=== PATIENT | female | born 1950 ===

== ENCOUNTER 2017-01-26 11:33 | Emergency (ER) | payer SELFPAY ==
[2017-01-26 11:45] VITALS: BP 187/74; PULSE 62; RESP 18; TEMP 97.8; O2SAT 99
--- NOTE | 2017-01-26 12:29 | C.PDOC ---
Time Seen by Provider: 01/26/17 12:07 Chief Complaint (Nursing): Lower Extremity Problem/Injury History Per: Patient Onset/Duration Of Symptoms: Days (months) Current Symptoms Are (Timing): Still Present Location Of Injury: Right: Foot, Left: Foot Quality Of Symptoms: Itching (?), Other (dry) Severity: Moderate Additional History Per: Prior Records Past Medical History Reviewed: Historical Data, Nursing Documentation, Vital Signs Vital Signs: Last Vital Signs Temp 97.8 F 01/26/17 11:40 Pulse 62 01/26/17 11:40 Resp 18 01/26/17 11:40 BP 187/74 H 01/26/17 11:40 Pulse Ox 99 01/26/17 11:40 - Medical History PMH: HTN Family History: States: Unknown Family Hx - Social History Hx Alcohol Use: No Hx Substance Use: No - Immunization History Hx Tetanus Toxoid Vaccination: No Hx Influenza Vaccination: No Hx Pneumococcal Vaccination: No Review Of Systems Except As Marked, All Systems Reviewed And Found Negative. Constitutional: Negative for: Fever, Weakness Cardiovascular: Negative for: Chest Pain Respiratory: Negative for: Shortness of Breath Musculoskeletal: Negative for: Neck Pain Skin: Positive for: Rash Neurological: Negative for: Weakness, Numbness Physical Exam - Physical Exam Appears: Non-toxic, No Acute Distress Skin: Normal Color, Warm, Dry Head: Atraumatic, Normacephalic Eye(s): bilateral: PERRL, EOMI Neck: Normal ROM, Supple Extremity: Normal ROM, No Calf Tenderness, No Deformity, Other (b/l Varicose veins. dry patches of skin on b/l feet. ) Pulses: Left Dorsalis Pedis: Normal, Right Dorsalis Pedis: Normal Neurological/Psych: Oriented x3, Normal Motor, Normal Sensation ED Course And Treatment O2 Sat by Pulse Oximetry: 99 Pulse Ox Interpretation: Normal Progress Note: Pt states she took her BP meds today, but that he BP is high because she is under emotional stress because her mother is ill. Reassessment Condition: Improved Disposition Counseled Patient/Family Regarding: Diagnosis, Need For Followup, Rx Given - Disposition Referrals: Podiatry Clinic [Outside] Shlomo Doshi DPM [[facility]] - Disposition: HOME/ ROUTINE Disposition Time: 12:31 Condition: STABLE Additional Instructions: Follow up with your doctor within 3-4 days for further evaluation of your blood pressure. Follow up with a [facility]acer (foot doctor). Return to the ER if you develop open wounds, redness, drainage, worsening of symptoms or if you have any other concerns. Prescriptions: Clotrimazole 1% Cream [Lotrimin 1%] 1 applic TOP BID #1 tube Instructions: Varicose Veins (ED) Print Language: HEBREW - Clinical Impression Clinical Impression: Varicose veins of legs, Cracked skin on feet
== END 2017-01-26 12:39 | disposition home or self-care (01) ==
LOC: C.ER 11:33
DX: L98.8 Other specified disorders of the skin and subcutaneous tissue (principal); I83.93 Asymptomatic varicose veins of bilateral lower extremities